=== PATIENT | female | born 1985 | race Hispanic/Latino ===

== ENCOUNTER 2022-09-19 13:57 | Outpatient (CLI) | payer OTHER ==
[~2022-09-19 13:57] MED LIST: Iopamidol 300 61% 100 ML VIAL FS ONE
== END 2022-09-19 13:58 | disposition home or self-care (01) ==
LOC: CSHRAD 13:57
PROVIDERS: ATTEND Student in an Organized Health Care Education/Training Program
DX: N97.9 Female infertility, unspecified (principal)
CPT/HCPCS: 58340; 74740; Q9967